=== PATIENT | female | born 1945 | race Caucasian/White ===

== ENCOUNTER 2016-10-21 00:55 | Emergency (ER) | payer BC, OTHER ==
[2016-10-21] MEDS ORDERED: ONDANSETRON 4 MG/2 ML VIAL IVP ONE (01:16)
[2016-10-21] MEDS ORDERED: Sodium Chloride 0.9% 1,000 ML PRIMARY IV ONE (01:16)
[2016-10-21] MEDS ORDERED: Pantoprazole Inj 40 MG in Normal Saline Flush 10 ML IVP ONE (01:16)
[2016-10-21] MEDS ORDERED: MORPHINE SULFATE 2 MG/1 ML IV ONE (01:16)
[2016-10-21] MEDS ORDERED: NORMAL SALINE 10 ML SYRINGE FLUSH IVP PRN (01:16)
[2016-10-21 01:23] VITALS: RESP 22; TEMP 98.9
--- NOTE | 2016-10-21 01:34 | EKG ---
[address] [address] Measurements Intervals [place] Rate: 77 P: 78 [place]: 166 QRS: 71 QRSD: 76 T: 59 QT: 355 QTc: 387 Interpretive Statements SINUS RHYTHM NONSPECIFIC ST & T-WAVE ABNORMALITY No previous ECG available for comparison Electronically Signed On 10-21-16 08:23:54 MDT by Silverio Hernandez MD [email or web address]
[2016-10-21 01:43] LABS: BASOPHILS # (AUTO) 0.06 10*3/UL; BASOPHILS % (AUTO) 0.9 % (0-1); EOSINOPHILS # (AUTO) 0.16 10*3/UL; EOSINOPHILS % (AUTO) 2.5 % (0-8); HEMATOCRIT 42.5 % (37.0-47.0); HEMOGLOBIN 14.2 g/dL (12.0-16.0); LYMPHOCYTES # (AUTO) 1.86 10*3/uL; MEAN CORPUSCULAR HEMOGLOBIN 30.8 PG (27-31); MEAN CORPUSCULAR HGB CONC 33.4 g/dL (33-37); MEAN CORPUSCULAR VOLUME 92.2 FL (81-99); MEAN PLATELET VOLUME 9.8 FL (7.4-12.2); MONOCYTES % (AUTO) 9.3 % (5-15); NEUTROPHILS # (AUTO) 3.73 10*3/UL; NEUTROPHILS % (AUTO) 58.1 % (50-80); RED BLOOD COUNT 4.61 10^6/uL (4.20-5.40)
[2016-10-21 01:45] LABS: PLATELET MORPHOLOGY COMMENT NORMAL MORPHOLOGY (NORM); RBC MORPHOLOGY COMMENT NORMAL MORPHOLOGY (NORM); WBC MORPHOLOGY COMMENT NORMAL MORPHOLOGY (NORM)
[2016-10-21 01:47] LABS: BILIRUBIN,URINE NEGATIVE (NEG); CLARITY,URINE CLEAR (CLEAR); COLOR,URINE YELLOW; GLUCOSE, URINE (UA) NEGATIVE (NEG); NITRATE,URINE NEGATIVE (NEG); OCCULT BLOOD,URINE NEGATIVE (NEG); PH,URINE 7.5 (5.0-8.5); PROTEIN,URINE NEGATIVE (NEG); URINE SAMPLE TYPE CLEAN CATCH URINE; UROBILINOGEN,URINE 0.2 EU/dL (0.2)
[2016-10-21 02:01] LABS: BLOOD UREA NITROGEN 15 mg/dL (7-22); BUN/CREATININE RATIO 18.75 (6-20); CALCIUM 9.4 mg/dL (8.7-10.7); EST GLOMERULAR FILTRATION > 60 (>60 ml/min/1.73m(2)); MAGNESIUM 2.6 mg/dL (1.6-2.4)
[2016-10-21 02:02] LABS: LIPASE 26 IU/L (23-300); SERUM ALBUMIN 4.1 g/dL (3.5-4.8)
--- NOTE | 2016-10-21 03:15 | DI ---
HISTORY: Abdominal pain. COMPARISON: None available. TECHNIQUE: Contiguous axial images of the abdomen and pelvis were obtained and submitted for interpr etation. FINDINGS: Normal CT appearance of the liver, pancreas, spleen, kidneys, and adrenal glands. The gal lbladder is hydropic. There are no radiopaque gallstones. Ureters and bladder are unremarkable. No radiopaque renal or collecting system calculi. No evidence of obstructive uropathy. There is colon ic diverticulosis with short segment thickening of the wall of the sigmoid colon. Subtle pericolonic fat stranding is present at this level. There is no extraluminal gas or formed fluid collection. T hese findings could represent early acute diverticulitis in the correct clinical setting. Hollow vis cus organs demonstrate normal course and caliber. The appendix is unremarkable. There is no intrape ritoneal free air or fluid. Vascular structures are intact with atheromatous aortoiliac and coronary artery calcifications. No abdominopelvic lymphadenopathy is present. The uterus and adnexa are unremarkable, though better evaluated with pelvic ultrasound. There is no inguinal or umbilical hernia. There is bibasilar atelectasis versus scar. The lung bases are otherwise clear. There is diffuse demineralization of the osseous structures. There are post surgical changes of the lumbar spine with multilevel degenerative disc disease. IMPRESSION: 1. The gallbladder is hydropic. A dedicated right upper quadrant ultrasound is recommended if there is clinical concern for acute cholecystitis. 2. There is colonic diverticulosis with short segment thickening of the wall of the sigmoid colon. S ubtle pericolonic fat stranding is present at this level. These findings could represent early acute diverticulitis in the correct clinical setting. Follow-up to resolution is recommended in order to exclude an underlying neoplasm. NOTIFICATION: The above findings were phoned to Job Arceo in the ER Department on 10/21/2016 at 05: 17 AM EST.
[2016-10-21] MEDS ORDERED: Amoxicill/Clav 875/125mg Tab 1 TAB TAB PO SCH (03:45)
[2016-10-21] MEDS ORDERED: oxyCODONE-ACETAMINOPHEN 5-325 TAB PO SCH (03:45)
--- NOTE | 2016-10-21 07:43 | PDOC ---
Abdomen/Flank HPI - General Chief Complaint: Abdomen Pain Stated Complaint: ABDOMINAL PAIN Date Seen by Provider: 10/21/16 Time Seen by Provider: 01:15 Source: POSITIVE: Patient, Spouse Exam Limitations: POSITIVE: No limitations Nurse's Notes Reviewed & Considered: Yes - History of Present Illness Initial Comments: The patient is a 71-year-old female who presents to the emergency department with epigastric abdominal pain. She states that she had onset of abdominal pain 3 or 4 days ago. This pain has progressively worsened and also radiates through to her back. She has not had any associated nausea or vomiting however she has had increased belching. She denies any fevers or chills or change in bowel movements. Her pain is primarily in the epigastric region and is somewhat worsened after eating. She states that after eating some soup tonight her pain intensified and she currently rates her pain about a 9 out of 10. She reports that she does have a history of perforated ulcer approximately 10 years ago that required surgery and she states her current pain feels similar. Other than the surgery for the perforated ulcer and some orthopedic procedures she has not had any previous abdominal surgery. She does still take Nexium however her dosage was decreased about a year ago. - Patient Home Medications Home Medications: Home Medications Albuterol Sulfate [Proair Hfa] 1 puff INH Q4H 10/21/16 Amox Tr/Potassium Clavulanate [Augmentin 875-125 Tablet] 1 each PO BID #20 tablet 10/21/16 Esomeprazole Magnesium [Nexium] 10 mg PO DAILY 10/21/16 Esomeprazole Magnesium [Nexium] 20 mg PO BID #60 capsule. 10/21/16 HYDROcodone/APAP 5/325 Tab [[employer] 5/325 Tab] 1 tab PO PRN 10/21/16 Melatonin/Pyridoxine [Melatonin 5 mg Tablet] 1 each PO BEDTIME 10/21/16 Oxygen 3 l NEB BEDTIME 10/21/16 - Patient Allergies Allergies/Adverse Reactions: Allergies Allergy/AdvReac Type Severity Reaction Status Date / Time No Known Allergies Allergy Unverified 10/21/16 01:07 Past Medical History - hefaizan HEENT History: Denies History Cardiovascular History: Denies History Respiratory History: COPD, Home Oxygen Use Additional Respiratory History: SUPPOSE TO USE 3 LPM EVERY DAY BUT USES 5 LPM AT NIGHT Gastrointestinal History: Denies History Genitourinary History: Denies History Endocrine History: Denies History Musculoskeletal History: Back Pain Neurological History: Denies History Blood Disorders: Denies History Psychiatric History: Denies History Female Reproductive History: Denies History Obstetrical History: Denies History Cancer History: Denies History In Past Year Been Physically Harmed or Verbally Threatened: No History of MDRO: No Tobacco Use: Current Every Day Smoker Alcohol Use: None Substance Use Type: None Previous Surgical History: Yes Type / Date of Surgery: FUSION TO THE LUMBAR IN THE BACK AND A PLATE. Significant Family History: No pertinent family hx Past Medical History Reviewed: Reviewed - No Changes ROS - Limitations ROS Limitations: No Limitations Constitution: DENIES: Chills, Fever Cardiovascular: DENIES: Chest Pain, Heart Palpitations, Edema Respiratory: REPORTS: Shortness Of Breath (She has chronic shortness of breath from COPD and wears oxygen at home). DENIES: Cough Non Productive, Cough Productive Neurological: REPORTS: Denies Neuro Symptoms Gastrointestinal: REPORTS: Abdominal Pain. DENIES: Nausea, Vomitting, Diarrhea , Black Stools, Bloody Stools, Constipation Endocrine: DENIES: Fatigue Musculoskeletal: REPORTS: Denies MS Symptoms Genitourinary: REPORTS: Denies Symptoms Eyes: REPORTS: Denies Symptoms ENT: REPORTS: Denies Symptoms Skin: DENIES: Rash Abdominal/Flank Pain PE - General Appearance General Appearance: POSITIVE: Alert, Cooperative, No Acute Distress - HEENT HEENT: POSITIVE: Head Inspection Nml, Eyes Inspection Nml, Ears Inspection Nml, Pharynx Inspect. Nml - Neck Neck: POSITIVE: Normal Inspection - Respiratory Respiratory: POSITIVE: No Respiratory Distress, Breath Sounds Normal, Chest Non- Tender - Cardiovascular Cardiovascular: POSITIVE: Regular Rate and Rhythm, Heart Sounds Normal - Abdomen Abdomen: Soft: (All Quadrants), Normal Bowel Sounds: (All Quadrants), No Guarding: (All Quadrants), No Rebound: (All Quadrants), No Palpabale Mass: (All Quadrants), No Distention: (All Quadrants) Additional Abdominal Details: She does have tenderness primarily in the epigastric region without guarding or rebound tenderness, she also does have some mild tenderness in the lower mid abdomen again without guarding or rebound tenderness and no palpable mass. Bowel sounds are present - Skin Skin: POSITIVE: Intact, No Rash - Extremities Extremity: Normal ROM: (All Extremities), Normal Inspection: (All Extremities) - Neurological Neurological: POSITIVE: Oriented X3, Other (No focal neurologic deficit) Abdomen Progress - Results Reviewed by me Xrays/CTs/US Reviewed by me: Yes Discussed with Radiologist: Yes Radiology Findings: CT scan of the abdomen and pelvis with IV contrast reveals hydropic gallbladder with no evidence of gallstones, segment of sigmoid colon that is thickened consistent with mild diverticulitis with associated diverticulosis, no other acute findings per radiologist. Lab Results Reviewed: Yes Lab Results:: Laboratory Results 10/21/16 Range/Units 01:15 WBC 6.42 (4.8-10.8) 10^3/uL RBC 4.61 (4.20-5.40) 10^6/uL Hgb 14.2 (12.0-16.0) g/dL Hct 42.5 (37.0-47.0) % MCV 92.2 (81-99) FL MCH 30.8 (27-31) PG MCHC 33.4 (33-37) g/dL RDW Std Deviation 45.4 (39-50) fL RDW Coeff of Fausto 13.6 (11.5-14.5) % Plt Count 216 (140-350) 10*3/uL MPV 9.8 (7.4-12.2) FL Immature Gran % (Auto) 0.2 (0-5) % Neut % (Auto) 58.1 (50-80) % Lymph % (Auto) 29.0 (10-50) % Daniels % (Auto) 9.3 (5-15) % Eos % (Auto) 2.5 (0-8) % Baso % (Auto) 0.9 (0-1) % Immature Gran # (Auto) 0.01 10*3/UL Neut # (Auto) 3.73 10*3/UL Lymph # (Auto) 1.86 10*3/uL Daniels # (Auto) 0.60 (0.3-0.8) 10*3/UL Eos # (Auto) 0.16 10*3/UL Baso # (Auto) 0.06 10*3/UL WBC Morphology Comment Normal morphology (NORM) Plt Morphology Comment Normal morphology (NORM) RBC Morph Comment Normal morphology (NORM) Sodium 136 (135-145) meq/L Potassium 4.9 (3.8-5.2) meq/L Chloride 102 (98-112) meq/L Carbon Dioxide 27 (23-33) meq/L Anion Gap 7 (5-20) BUN 15 (7-22) mg/dL Creatinine 0.8 (0.50-1.20) mg/dL Estimated GFR > 60 (>60 ml/min/1.73m(2)) BUN/Creatinine Ratio 18.75 (6-20) Glucose 101 (78-110) mg/dL Calculated Osmolality 282.0 (267-292) mOsm/kg Calcium 9.4 (8.7-10.7) mg/dL Magnesium 2.6 H (1.6-2.4) mg/dL Total Bilirubin 0.7 (0.3-1.2) mg/dL AST 31 (8-39) IU/L ALT 22 (9-52) IU/L Alkaline Phosphatase 95 (38-126) IU/L Troponin I < 0.012 (< 0.040) ng/mL C-Reactive Protein 1.0 H (0.0-0.9) mg/dL Total Protein 7.4 (6.1-8.0) g/dL Albumin 4.1 (3.5-4.8) g/dL Globulin 3.3 (2.50-4.10) g/dL Albumin/Globulin Ratio 1.20 L (1.3-2.0) mg/g Amylase 47 (30-110) U/L Lipase 26 (23-300) IU/L Ur Collection Type Clean catch urine Urine Color Yellow Urine Clarity Clear (CLEAR) Urine pH 7.5 (5.0-8.5) Ur Specific [place] 1.020 (1.005-1.030) Urine Protein Negative (NEG) mg/dl Urine Glucose (UA) Negative (NEG) mg/dL Urine Ketones Negative (NEG) Urine Occult Blood Negative (NEG) Urine Nitrate Negative (NEG) Urine Bilirubin Negative (NEG) Urine Urobilinogen 0.2 (0.2) EU/dL Ur Leukocyte Esterase Negative (NEG) Ur Culture Indicated? Culture not set EKG Interpreted/Reviewed By Me:: Yes EKG Interpretation:: POSITIVE: Normal Sinus Rhythm, Normal Rate, Normal Intervals, Normal QRS, Normal ST/T - Patient's Progress MDM / ED Course: Shortly after arrival an IV was established and the patient did receive IV Protonix 40 mg, morphine 2 mg IV and Zofran 4 mg IV. Her pain resolved by the time her CT scan was completed. Findings are discussed with the patient. At this time her lab work is all essentially normal including normal liver enzymes and normal pancreas enzymes. The CT scan of her abdomen and pelvis reveals an enlarged gallbladder with no evidence of gallstones as well as an area of mild diverticulitis of the sigmoid colon. On physical exam on arrival she was not particularly tender over the right upper quadrant. At this time her presentation is most consistent with gastritis or ulcer. In addition she does have what appears to be some mild diverticulitis with some tenderness in her lower abdomen as well. Overall the patient is feeling "100% better" and I think she is stable for treatment as an outpatient. The diverticulitis will be treated with Augmentin 875 mg twice a day for 10 days. She is also advised to increase her Nexium to 20 mg twice a day. She was dispensed number for Percocet which she can use as needed for pain. She is advised return to the emergency room she develops increased pain, vomiting or dehydration, fever, any worsening or change in symptoms. Otherwise she will follow-up with her primary care provider early next week. She was advised that if she has continued pain she may require further workup including further gallbladder evaluation and possible endoscopy. - Consult Counseled: POSITIVE: Patient, Family, RE: Lab Results, RE: Radiology Results, RE : DX, RE: Need for F/U Patient Care Time - Estimated PCT Patient Care Time (In Minutes): 40 Vital Signs - Recent Vital Signs Vital Signs: Vital Signs (Last 8 hours) Temp Pulse Resp BP Pulse Ox 10/21/16 01:07 98.9 F 75 22 122/70 82 - VS Reviewed Vital Signs Reviewed: Yes Discharge Clinical Impression: Abdominal pain, Gastritis, Diverticulitis Discharge Disposition: Discharged to Home Condition: Good Prescriptions / Orders: Amox Tr/Potassium Clavulanate [Augmentin 875-125 Tablet] 1 each PO BID #20 tablet Esomeprazole Magnesium [Nexium] 20 mg PO BID #60 capsule. Patient Instructions Given at Discharge: Gastritis (ED), Diverticulitis (ED), Acute Abdominal Pain (ED) Additional Instructions: The CAT scan did not show any evidence of perforated ulcer. The gallbladder was slightly enlarged however there was no evidence of gallstones and your current pain is not consistent with gallbladder issue. There was a small area of thickening of the colon consistent with diverticulitis. At this point I think the primary cause of pain is likely gastritis or ulcer. I would recommend increasing Nexium to 20 mg twice a day. In addition will treat diverticulitis with Augmentin 875 mg twice a day. You have been given Percocet 5/325 which he can take as needed for pain. Return to the emergency room if increased pain, fever, vomiting, any worsening or change in symptoms. Recommend follow-up with primary care in 3-5 days. Follow Up With: JENNIFER SIN [Primary Care Provider] -
== END 2016-10-21 03:55 | disposition home or self-care (01) ==
LOC: ER 00:55
DX: K57.12 Diverticulitis of small intestine without perforation or abscess without bleeding (principal); K29.00 Acute gastritis without bleeding; R10.13 Epigastric pain; Z72.0 Tobacco use
CPT/HCPCS: 74177; 80053; 81003; 82150; 83690; 83735; 84484; 85025; 86140; 93005; 93010; 96374; 96375; 99284; J2270; J2405; J3490; J7030